=== PATIENT | female | born 1995 ===

== ENCOUNTER 2019-08-06 17:50 | Emergency (ER) | payer OTHER ==
[~2019-08-06] VITALS: Ht 180.3 cm; Wt 102.1 kg
[2019-08-06] MEDS ORDERED: AUGMENTIN 875-1 EACH PO (22:37)
== END 2019-08-06 23:04 | disposition home or self-care (01) ==
LOC: ED 17:50
DX: J32.0 Chronic maxillary sinusitis (principal); J45.901 Unspecified asthma with (acute) exacerbation; E11.9 Type 2 diabetes mellitus without complications; F17.200 Nicotine dependence, unspecified, uncomplicated
CPT/HCPCS: 99283

== ENCOUNTER 2020-11-14 14:44 | Emergency (ER) | payer OTHER ==
[~2020-11-14] VITALS: Ht 180.3 cm; Wt 102.1 kg
[~2020-11-14 14:44] MED LIST: AUGMENTIN 875-1 EACH PO
== END 2020-11-14 16:45 | disposition home or self-care (01) ==
LOC: ED 14:44
DX: T71.9XXA Asphyxiation due to unspecified cause, initial encounter (principal); S10.93XA Contusion of unspecified part of neck, initial encounter; Y04.8XXA Assault by other bodily force, initial encounter; E11.9 Type 2 diabetes mellitus without complications; F17.200 Nicotine dependence, unspecified, uncomplicated; Z88.8 Allergy status to other drugs, medicaments and biological substances
CPT/HCPCS: 70498; 99284-25

== ENCOUNTER 2022-02-06 08:30 | Emergency (ER) | payer OTHER ==
[~2022-02-06] VITALS: Ht 180.3 cm; Wt 92.1 kg
[2022-02-06] MEDS ORDERED: HYDROCODON-ACE1 EA10 PO (10:38)
[2022-02-06] MEDS ORDERED: AMOX TR-K CLV1 EAC1 PO (10:38)
== END 2022-02-06 11:40 | disposition home or self-care (01) ==
LOC: ED 08:30
DX: S61.452A Open bite of left hand, initial encounter (principal); L08.9 Local infection of the skin and subcutaneous tissue, unspecified; W54.0XXA Bitten by dog, initial encounter; E11.9 Type 2 diabetes mellitus without complications; F17.200 Nicotine dependence, unspecified, uncomplicated; Z91.018 Allergy to other foods
CPT/HCPCS: 90471; 90715; 96365; 96367; 99283-25; J0696

== ENCOUNTER 2022-05-14 14:13 | Emergency (ER) | payer OTHER ==
[~2022-05-14] VITALS: Ht 180.3 cm; Wt 88.0 kg
[~2022-05-14 14:13] MED LIST changes: +AMOX TR-K CLV1 EAC1 PO; +HYDROCODON-ACE1 EA10 PO
== END 2022-05-14 16:37 | disposition home or self-care (01) ==
LOC: ED 14:13
DX: S06.0X0A Concussion without loss of consciousness, initial encounter (principal); S40.021A Contusion of right upper arm, initial encounter; Y04.8XXA Assault by other bodily force, initial encounter; E11.9 Type 2 diabetes mellitus without complications; J45.909 Unspecified asthma, uncomplicated; F17.200 Nicotine dependence, unspecified, uncomplicated; Z88.8 Allergy status to other drugs, medicaments and biological substances
CPT/HCPCS: 70486; 99284-25; A9270

== ENCOUNTER 2022-07-23 10:34 | Emergency (ER) | payer OTHER ==
[~2022-07-23] VITALS: Ht 180.3 cm; Wt 88.0 kg
== END 2022-07-23 12:19 | disposition home or self-care (01) ==
LOC: ED 10:34
DX: F07.81 Postconcussional syndrome (principal); E11.9 Type 2 diabetes mellitus without complications; J45.909 Unspecified asthma, uncomplicated; F17.210 Nicotine dependence, cigarettes, uncomplicated; Z88.8 Allergy status to other drugs, medicaments and biological substances
CPT/HCPCS: 70450; 99284-25

== ENCOUNTER 2025-02-13 07:18 | Emergency (ER) | payer OTHER ==
[~2025-02-13] VITALS: Ht 180.3 cm; Wt 79.2 kg
[2025-02-13] MEDS ORDERED: VENTOLIN HFA18 GM (07:37)
[2025-02-13] MEDS ORDERED: ASMANEX HFA13 GM IH (07:37)
[2025-02-13 07:55] LABS: BASOPHILS 0.7 % (0.1-1.2); EOSINOPHILS 1.8 % (0.7-5.8); HEMATOCRIT 46.1 % (34.1-44.9); HEMOGLOBIN 16.2 g/dL (11.2-15.7); LYMPHOCYTES 31.2 % (19.3-51.7); MCH 30.9 PG (25.6-32.2); MCHC 35.1 g/dL (32.2-35.5); MCV 87.8 fL (79.4-94.8); MONOCYTES 5.1 % (4.7-12.5); NEUTROPHILS 60.9 % (34.0-71.1); PLATELET COUNT 234 K/uL (182-369); RBC 5.25 M/uL (3.93-5.22)
[2025-02-13] MEDS ORDERED: SODIUM CHLORIDE 0.9% 500 ML IV PRN (08:00)
[2025-02-13 08:08] LABS: ABO O; RH POSITIVE
[2025-02-13 08:29] LABS: ANION GAP 16.4 (7-21); BUN/CREATININE RATIO 8.95 (6.0-28.6); CREATININE, SERUM 0.67 mg/dL (0.55-1.02); POTASSIUM 3.4 mmol/L (3.5-5.1)
[2025-02-13 09:28] VITALS: BP 113/83
== END 2025-02-13 09:28 | disposition home or self-care (01) ==
LOC: ED 07:18
PROVIDERS: Emergency Medicine
DX: O20.0 Threatened abortion (principal); E11.9 Type 2 diabetes mellitus without complications; J45.909 Unspecified asthma, uncomplicated; F17.200 Nicotine dependence, unspecified, uncomplicated; Z79.899 Other long term (current) drug therapy; Z91.018 Allergy to other foods; Z3A.12 12 weeks gestation of pregnancy
CPT/HCPCS: 36415; 76801; 80048; 84702; 85025; 86900; 86901; 99284-25

== ENCOUNTER 2025-04-16 09:01 | Inpatient (IN) | payer OTHER ==
[~2025-04-16 09:01] MED LIST changes: +ASMANEX HFA13 GM IH; +CALCIUM CARBONATE 500 MG CHEW PO PRN; +LACTATED RINGER'S 1,000 ML IV ONE; +LACTATED RINGER'S 1,000 ML IV SCH; +MAGNESIUM HYDROXIDE/AL HYDROX 30 ML CUP PO PRN; +SALINE LOCK FLUSH 5 ML SYR IV SCH; +VENTOLIN HFA18 GM
[2025-04-16 09:26] VITALS: BP 112/74
[2025-04-16] MEDS ORDERED: CALCIUM CARBONATE 500 MG CHEW PO PRN ×2 (10:00→20:45)
[2025-04-16] MEDS ORDERED: TERBUTALINE SULFATE 1 MG/ML AMP SUB-Q PRN (10:00)
[2025-04-16] MEDS ORDERED: MAGNESIUM HYDROXIDE/AL HYDROX 30 ML CUP PO PRN ×2 (10:00→20:45)
[2025-04-16 10:03] LABS: MCH 31.2 PG (25.6-32.2); MCHC 35.5 g/dL (32.2-35.5); MCV 87.8 fL (79.4-94.8); RBC 4.75 M/uL (3.93-5.22)
[2025-04-16 10:23] LABS: INR 1.01 (0.80-1.30); PROTIME 12.9 Sec (11.2-14.2)
[2025-04-16 10:26] LABS: AMPHETAMINES, URINE NEGATIVE (NEGATIVE); BARBITURATES, URINE NEGATIVE (NEGATIVE); BENZODIAZEPINE, URINE NEGATIVE (NEGATIVE); CANNABINOID, URINE POSITIVE (NEGATIVE); COCAINE, URINE NEGATIVE (NEGATIVE); ECSTASY, URINE NEGATIVE (NEGATIVE); FENTANYL, URINE NEGATIVE (NEGATIVE); METHADONE, URINE NEGATIVE (NEGATIVE); OPIATES, URINE NEGATIVE (NEGATIVE); OXYCODONE, URINE NEGATIVE (NEGATIVE); PHENCYCLIDINE, URINE NEGATIVE (NEGATIVE)
[2025-04-16] MEDS ORDERED: LIDOCAINE HCL 1% 30 ML SDV INJ PRN (11:15)
[2025-04-16] MEDS ORDERED: OXYTOCIN/0.9 % SODIUM CHLORIDE 30 UNITS/500 ML BAG IV SCH (14:30)
[2025-04-16 14:42] LABS: ABO O; ANTIBODY SCREEN NEGATIVE; RH POSITIVE
[2025-04-16] MEDS ORDERED: ROPIVACAINE 0.2% 200 ML BAG ONE (19:09)
[2025-04-16] MEDS ORDERED: MIDAZOLAM HCL 2 MG/2 ML VIAL ONE (19:12)
[2025-04-16] MEDS ORDERED: fentaNYL citrate 100 MCG/2 ML VIAL ONE (19:14)
[2025-04-16] MEDS ORDERED: OXYTOCIN/0.9 % SODIUM CHLORIDE 500 ML IV ONE (19:14)
[2025-04-16] MEDS ORDERED: LACTATED RINGER'S 500 ML IV PRN (19:45)
[2025-04-16] MEDS ORDERED: ROPIVACAINE 0.2% 200 ML BAG EPIDURAL SCH (19:45)
[2025-04-16] MEDS ORDERED: ePHEDrine sulfate 5 MG/ML SYRINGE IV PRN (19:45)
[2025-04-16] MEDS ORDERED: LACTATED RINGER'S 2,000 ML IV ONE (19:45)
[2025-04-16] MEDS ORDERED: LIDOCAINE 2% VISCOUS 6 ML SYR TOP ONE ×2 (20:45)
[2025-04-16] MEDS ORDERED: WITCH HAZEL/GLYCERIN 1 EA PAD TOP PRN (20:45)
[2025-04-16] MEDS ORDERED: OXYTOCIN/0.9 % SODIUM CHLORIDE 500 ML IV SCH (20:45)
[2025-04-16] MEDS ORDERED: ACETAMINOPHEN 325 MG TAB PO PRN (20:45)
[2025-04-16] MEDS ORDERED: IBUPROFEN 600 MG TAB PO PRN (20:45)
[2025-04-16] MEDS ORDERED: BENZOCAINE 60 ML AEROSOL TOP PRN (20:45)
[2025-04-16] MEDS ORDERED: HYDROCORTISONE ACETATE 25 MG SUPP PR PRN (20:45)
[2025-04-16] MEDS ORDERED: MAGNESIUM HYDROXIDE 30 ML UDC PO PRN (20:45)
[2025-04-16] MEDS ORDERED: SENNOSIDES/DOCUSATE 1 EA TAB PO SCH (21:00)
--- NOTE | 2025-04-16 22:39 | NUR ---
HS CALLED ME AT 2051 TO LET ME KNOW OF DEMISE. PT AND DAD WERE IN THE ROOM WHEN I CAME IN. WE TALKED ABOUT THEIR DAUGHTER, WHO THEY NAMED VIKTORIA. THEY SHARED THAT THEIR SON WAS HAVING A HARD TIME WITH VIKTORIA'S . I PRAYED WITH THEM AND BLESSED VIKTORIA. CALLED [facility] TO GIVE THEM A HEADS UP ABOUT THE . STAFF WILL CALL THEM WHEN THE PARENTS ARE READY. PARENTS WERE TOLD THAT VIKTORIA COULD STAY WITH THEM ALL NIGHT IF THAT WAS WHAT THEY WANTED. CHECKED IN WITH HS BEFORE LEAVING.
== END 2025-04-17 08:05 | disposition home or self-care (01) | DRG 806 ==
LOC: FBC 09:01
PROVIDERS: ADMIT Advanced Practice Midwife; ATTEND Advanced Practice Midwife
PROC: 10E0XZZ Delivery of Products of Conception, External Approach (ICD-10-PCS; principal; 2025-04-16)
DX: O36.4XX0 Maternal care for intrauterine death, not applicable or unspecified (principal); O99.322 Drug use complicating pregnancy, second trimester; Z37.1 Single stillbirth; Z3A.20 20 weeks gestation of pregnancy; O34.219 Maternal care for unspecified type scar from previous cesarean delivery; F12.90 Cannabis use, unspecified, uncomplicated; O99.332 Smoking (tobacco) complicating pregnancy, second trimester; F17.200 Nicotine dependence, unspecified, uncomplicated; Z98.890 Other specified postprocedural states; Z79.899 Other long term (current) drug therapy; Z98.818 Other dental procedure status; Z91.02 Food additives allergy status; Z88.8 Allergy status to other drugs, medicaments and biological substances
CPT/HCPCS: 01960; 36415; 80307; 85027; 85384; 85610; 85730; 86850; 86900; 86901; A9270; J2250; J3010; J7121

== ENCOUNTER 2025-06-02 21:10 | Emergency (ER) | payer OTHER ==
[~2025-06-02] VITALS: Ht 180.3 cm; Wt 79.2 kg
[~2025-06-02 21:10] MED LIST changes: -CALCIUM CARBONATE 500 MG CHEW PO PRN; -LACTATED RINGER'S 1,000 ML IV ONE; -LACTATED RINGER'S 1,000 ML IV SCH; -MAGNESIUM HYDROXIDE/AL HYDROX 30 ML CUP PO PRN; -SALINE LOCK FLUSH 5 ML SYR IV SCH
--- OUTSIDE RECORDS SUMMARY | 2025-06-02 21:13 | XMS | Continuity of Care Document ---
Demographics + + + | Address | [address] | | | [place] [address] | + + + | Preferred Language | Unknown | + + + | Marital Status | Never | + + + | Buddhism Affiliation | Unknown | + + + | Race | Unknown | + + + | Ethnic Group | Not or | + + + Author + + + | Author | [facility] | + + + | Organization | [facility] | + + + | Address | [address] | | | [place] [address] | + + + | Phone | | + + + Care Team Providers + + + + | Care Turntable Worker Name | Role | Phone | + + + + Unavailable | Unavailable | + + + + Unavailable | Unavailable | + + + + Allergies and Intolerances + + + + + + | date | description | facility | reaction | severity | + + + + + + | 2025-04-15 | Aleida | [facility] - | Anaphylaxis | (no severity) | | 00:00 | | [facility] | | | + + + + + + | 2025-04-15 | Aleida | [facility] - | Anaphylaxis | (no severity) | | 00:00 | | [facility] | | | + + + + + + | 2025-04-15 | ROBERTAK | [facility] - | (no reaction) | (no severity) | | 00:00 | | [facility] | | | | | [facility] | | | + + + + + + Encounters No information. Functional Status No information. Immunizations No information. Medications + + + + | date | description | facility | + + + + | (no date) | MOMETASONE FUROATE | [facility] | | | | [facility] | + + + + | (no date) | ALBUTEROL SULFATE | [facility] | | | | [facility] | + + + + Problems + + + + | date | description | facility | + + + + | 2025-04-15 00:00 | Encounter for medical | [facility] - | | | screening examination | [facility] | + + + + Procedures No information. Results/Labs +--------+--------+ +---------+--------+---------+ | test | date | facility | value | unit | notes | +--------+--------+ +---------+--------+---------+ + + | Result panel 1 | + + + + + + + + + | | 2025-04-16 | | NEGATIVE | (missing) | (missing) | | Amphetamines | 09:15:07 | [facility] | | | | | Ur Ql | [facility] | [facility] | Scn>500 | | [facility] | | | | ng/mL | | [facility] | | | | + + + + + + + + + | Result panel 2 | + + + + + + + + + | | 2025-04-16 | | NEGATIVE | (missing) | (missing) | | Barbiturates | 09:15:07 | [facility] | | | | | Ur Ql | | - [facility] | | | | | Scn>300 | | [facility] | | | | | ng/mL | | [facility] | | | | + + + + + + + + + | Result panel 3 | + + + + + + + + + | Benzodiaz | 2025-04-16 | | NEGATIVE | (missing) | (missing) | | Ur Ql | 09:15:07 | [facility] | | | | | Scn>300 | | - [facility] | | | [facility] | ng/mL | | [facility] | | | | + + + + + + + + + | Result panel 4 | + + + + + + + + + | Cocaine Ur | 2025-04-16 | | NEGATIVE | (missing) | (missing) | | Ql Scn | 09:15:07 | [facility] | | | | | | [facility] - [facility] | | | | | | [facility] | | | | + + + + + + + + + | Result panel 5 | + + + + + + + + + | | 2025-04-16 | | NEGATIVE | (missing) | (missing) | | Buprenorphin | 09:15:07 | [facility] | | | | | e Ur Ql Scn | [facility] - [facility] | | [facility] | | | | + + + + + + + + + | Result panel 6 | + + + + + + + + + | oxyCODONE | 2025-04-16 | | NEGATIVE | (missing) | (missing) | | Ur Ql Scn | 09:15:07 | [facility] | | | | | | [facility] | [facility] | | | | + + + + + + + + + | Result panel 7 | + + + + + + + + + | MDMA Ur Ql | 2025-04-16 | | NEGATIVE | (missing) | (missing) | | Scn | 09:15:07 | [facility] | | | | | | [facility] | [facility] | | | | + + + + + + + + + | Result panel 8 | + + + + + + + + + | Methadone | 2025-04-16 | | NEGATIVE | (missing) | (missing) | | Ur Ql | 09:15:07 | [facility] | | | | | Scn>300 | | [facility] | | | [facility] | ng/mL | | [facility] | | | | + + + + + + + + + | Result panel 9 | + + + + + + + + + | Opiates Ur | 2025-04-16 | | NEGATIVE | (missing) | (missing) | | Ql Scn | 09:15:07 | [facility] | | | | | [facility] | [facility] | | | | + + + + + + + + + | Result panel 10 | + + + + + + + + + | PCP Ur Ql | 2025-04-16 | | NEGATIVE | (missing) | (missing) | | Scn>25 ng/mL | 09:15:07 | [facility] | | | | | [facility] | [facility] | | | | + + + + + + + + + | Result panel 11 | + + + + + + + + + | THC Ur Ql | 2025-04-16 | | POSITIVE | (missing) | (missing) | | Scn>50 ng/mL | 09:15:07 | [facility] | | | | [facility] | | | | + + + + + + + + + | Result panel 12 | + + + + + + + + + | fentaNYL Ur | 2025-04-16 | | NEGATIVE | (missing) | (missing) | | Ql Scn | 09:15:07 | [facility] | | | | [facility] | | | | + + + + + + + + + | Result panel 13 | + + + + + +---------+ + + | WBC # Bld | 2025-04-16 | | 10.18 | (missing) | (missing) | | Auto | 09:35:07 | [facility] | | | | + + + +---------+ + + + + | Result panel 14 | + + + + + +--------+ + + | INR PPP | 2025-04-16 | | 1.01 | (missing) | (missing) | | | 09:35:07 | [facility] | | | | + + + +--------+ + + + + | Result panel 15 | + + + + + +--------+ + + | aPTT PPP | 2025-04-16 | | 32.8 | (missing) | (missing) | | | 09:35:07 | [facility] | | | | + + + +--------+ + + + + | Result panel 16 | + + + + + +-------+---------+ + | Fibrinogen | 2025-04-16 | | 381 | mg/dL | (missing) | | PPP-mCnc | 09:35:07 | [facility] | [facility] | | | | + + + +-------+---------+ + + + | Result panel 17 | + + + + + +--------+ + + | RBC # Bld | 2025-04-16 | | 4.75 | (missing) | (missing) | | Auto | 09:35:07 | [facility] | | | | + + + +--------+ + + + + | Result panel 18 | + + + + + +-----+ + + | ABO Group | 2025-04-16 | | O | (missing) | (missing) | | Bld | 09:35:07 | [facility] | | | | + + + +-----+ + + + + | Result panel 19 | + + + + + + + + + | Rh Bld | 2025-04-16 | | POSITIVE | (missing) | (missing) | | | 09:35:07 | [facility] | | | | + + + + + + + + + | Result panel 20 | + + + + + + + + + | IAT Poly-Sp | 2025-04-16 | | NEGATIVE | (missing) | (missing) | | Reag SerPl | 09:35:07 | [facility] | | | | | Ql | [facility] | | | | + + + + + + + + + | Result panel 21 | + + + + + + + + + | Transf Band | 2025-04-16 | | BLOOD IN | (missing) | (missing) | | Num Patient | 09:35:07 | [facility] | LAB | | | | [facility] | | | | + + + + + + + + + | Result panel 22 | + + + + + +--------+ + + | Hgb | 2025-04-16 | | 14.8 | (missing) | (missing) | | Bld-mCnc | 09:35:07 | [facility] | | | | + + + +--------+ + + + + | Result panel 23 | + + + + + +--------+ + + | Hct VFr.DF | 2025-04-16 | | 41.7 | (missing) | (missing) | | Bld Auto | 09:35:07 | [facility] | | | | + + + +--------+ + + + + | Result panel 24 | + + + + + +--------+ + + | RBC Auto | 2025-04-16 | | 87.8 | (missing) | (missing) | | | 09:35:07 | [facility] | | | | + + + +--------+ + + + + | Result panel 25 | + + + + + +--------+ + + | MCH RBC Qn | 2025-04-16 | | 31.2 | (missing) | (missing) | | Auto | 09:35:07 | [facility] | | | | + + + +--------+ + + + + | Result panel 26 | + + + + + +--------+ + + | MCHC RBC | 2025-04-16 | | 35.5 | (missing) | (missing) | | Auto-EntMCnc | 09:35:07 | [facility] | | | | + + + +--------+ + + + + | Result panel 27 | + + + + + +-------+ + + | Platelet # | 2025-04-16 | | 270 | (missing) | (missing) | | Bld Auto | 09:35:07 | [facility] | | | | + + + +-------+ + + + + | Result panel 28 | + + + + + +--------+ + + | Prothrombin | 2025-04-16 | | 12.9 | (missing) | (missing) | | time | 09:35:07 | [facility] | [facility] | | | | + + + +--------+ + + Social History +--------+ + + | date | description | facility | +--------+ + + Vital Signs + + + +---------+ | date | measurement | value | units | + + + +---------+ | 2025-04-15 00:00 | BMI | 24.4 | kg/m2 | + + + +---------+ | 2025-04-15 00:00 | BP_diastolic | 82 | mmHg | + + + +---------+ | 2025-04-15 00:00 | BP_systolic | 119 | mmHg | + + + +---------+ | 2025-04-15 00:00 | heart_rate | 70 | /min | + + + +---------+ | 2025-04-15 00:00 | height_metric | 180.34 | cm | + + + +---------+ | 2025-04-15 00:00 | height_standard | 71 | in | + + + +---------+ | 2025-04-15 00:00 | o2_saturation | 100 | % | + + + +---------+ | 2025-04-15 00:00 | respiration_rate | 18 | /min | + + + +---------+ | 2025-04-15 00:00 | | 98 | F | | | temperature_standar | | | | | d | | | + + + +---------+ | 2025-04-15 00:00 | weight_metric | 79.2 | kg | + + + +---------+ | 2025-04-15 00:00 | weight_standard | 174.606 | lb | + + + +---------+ | 2025-04-16 00:00 | BP_diastolic | 74 | mmHg | + + + +---------+ | 2025-04-16 00:00 | BP_systolic | 112 | mmHg | + + + +---------+"
[2025-06-02] MEDS ORDERED: MORPHINE SULFATE 4 MG/ML VIAL IV ONE (21:30)
[2025-06-02] MEDS ORDERED: SODIUM CHLORIDE 0.9% 1,000 ML IV ONE (21:30)
[2025-06-02 21:53] LABS: BASOPHILS 0.5 % (0.1-1.2); EOSINOPHILS 0.5 % (0.7-5.8); LYMPHOCYTES 20.3 % (19.3-51.7); MCH 31.4 PG (25.6-32.2); MCHC 35.6 g/dL (32.2-35.5); MCV 88.3 fL (79.4-94.8); MONOCYTES 6.4 % (4.7-12.5); NEUTROPHILS 71.9 % (34.0-71.1); RBC 4.71 M/uL (3.93-5.22)
[2025-06-02 22:08] LABS: AST (SGOT) 6.0 U/L (15-37); GLOMERULAR FILTRATION RATE,EST 110.0 mL/min (>60); PROTEIN, TOTAL 6.9 g/dL (6.4-8.2); UREA NITROGEN 6.0 mg/dL (7-18)
[2025-06-02 22:09] LABS: ALT (SGPT) 2.0 U/L (14-59)
[2025-06-02 22:26] LABS: BLOOD/HGB, URINE MODERATE (Negative); KETONE, URINE TRACE (Negative); LEUK ESTERASE, URINE NEGATIVE (negative); NITRITE, URINE NEGATIVE (negative)
[2025-06-02 22:27] LABS: INFLUENZA B NAA NEGATIVE (NEGATIVE); RESPIRATORY SYNCYTIAL VIR NAA NEGATIVE (NEGATIVE)
[2025-06-02 22:33] LABS: EPITHELIAL CELLS, URINE SQUAMOUS 4+ /lpf (0-1+)
[2025-06-02 22:34] LABS: BACTERIA, URINE RARE /hpf (negative); CASTS, URINE NONE SEEN \\lpf; CRYSTALS, URINE NONE SEEN (0-1+); REFLEX CULTURE, URINE No (No)
[2025-06-02] MEDS ORDERED: CYCLOBENZAPRINE10 MG PO (23:20)
[2025-06-02] MEDS ORDERED: ONDANSETRON ODT8 MG PO (23:20)
[2025-06-02] MEDS ORDERED: CYCLOBENZAPRINE HCL 10 MG HOME.PACK PO ONE (23:30)
[2025-06-02] MEDS ORDERED: ONDANSETRON 4 MG HOME.PACK SL ONE (23:30)
[2025-06-02 23:37] VITALS: BP 110/72
== END 2025-06-02 23:38 | disposition home or self-care (01) ==
LOC: ED 21:10
PROVIDERS: Family Medicine
DX: B34.9 Viral infection, unspecified (principal); E11.9 Type 2 diabetes mellitus without complications; J45.909 Unspecified asthma, uncomplicated; F17.200 Nicotine dependence, unspecified, uncomplicated; Z79.51 Long term (current) use of inhaled steroids; Z79.899 Other long term (current) drug therapy
CPT/HCPCS: 36415; 74176; 80053; 81001; 83690; 84703; 85025; 87502; 96361; 96374; 96375; 99284-25; A9270; J2270; J2405; J7030; U0002